=== PATIENT | male | born 1965 | race Caucasian/White ===

== ENCOUNTER 2016-07-16 15:17 | Inpatient (IN) | payer MEDICARE, MEDICAID ==
[~2016-07-16] VITALS: Ht 180.3 cm; Wt 55.1 kg
[2016-07-16] VITALS (13 sets, daily range): BP systolic 113–158; BP diastolic 65–89; O2SAT 97–98
[2016-07-16] MEDS ORDERED: NOREPINEPHRINE 4 MG/4 ML AMP As Ordered ONE (15:38)
[2016-07-16] MEDS ORDERED: NOREPINEPHRINE BITARTRATE 8 MG in D5W 500 ML IV SCH (15:41)
[2016-07-16] MEDS ORDERED: AMIODARONE 150MG/3ML INJ (J0282) ONE (15:42)
[2016-07-16] MEDS ORDERED: SODIUM BICARBONATE 8.4% INJ 50 ML SYRINGE ONE (15:42)
[2016-07-16] MEDS ORDERED: ATROPINE SULF 1MG/10ML SYRINGE (J0461) ONE (15:42)
[2016-07-16] MEDS ORDERED: EPINEPHrine 1MG/10ML SYRINGE 1.5IN ONE (15:42)
[2016-07-16] MEDS ORDERED: DOPamine 400 MG/500 ML BAG IN D5W (800MCG/ML) (J1265) ONE (15:42)
[2016-07-16 15:49] LABS: ABG HCO3 11.1 MEQ/L (22.0-26.0); ABG PARTIAL PRESSURE CO2 70.9 mmHg (35.0-45.0); ABG PARTIAL PRESSURE O2 256.1 mmHg (75.0-100.0); ABG STANDARD HCO3 7.8 MEQ/L (22.0-26.0); ABG TOTAL CO2 13.2 MEQ/L (22.0-29.0); ABG pH (ARTERIAL) 6.811 UNITS (7.350-7.450)
[2016-07-16] MEDS ORDERED: SODIUM BICARBONATE 8.4% INJ 50MEQ 50 ML VIAL As Ordered ONE (16:02)
[2016-07-16] MEDS ORDERED: IMIPENEM/CILASTATIN 500 MG in D5W MINI-BAG PLUS 100 ML IV ONE (16:15)
[2016-07-16] MEDS ORDERED: VANCOMYCIN HCL 1,000 MG, VIAL MATE ADAPTER 1 EACH in D5W 250 ML IV ONE (16:15)
[2016-07-16 16:25] LABS: ALBUMIN 1.9 GM/DL (3.2-5.2); ALKALINE PHOSPHATASE 32 U/L (45-117); ALT/SGPT 96 U/L (12-78); AMYLASE 54 U/L (25-115); AST/SGOT 254 U/L (15-37); BILIRUBIN,DIRECT 0.4 MG/DL (0.0-0.2); BILIRUBIN,TOTAL 0.7 MG/DL (0.2-1.0); BLOOD UREA NITROGEN 44 MG/DL (7-18); CALCIUM LEVEL 6.8 MG/DL (8.5-10.1); CARBON DIOXIDE LEVEL 13 MEQ/L (21-32); CHLORIDE LEVEL 97 MEQ/L (98-107); CREATININE FOR GFR 1.71 MG/DL (0.70-1.30); GLUCOSE, FASTING 90 MG/DL (70-105); POTASSIUM SERUM 4.7 MEQ/L (3.5-5.1); SODIUM LEVEL 138 MEQ/L (136-145); TOTAL PROTEIN 5.2 GM/DL (6.4-8.2)
[2016-07-16 16:28] LABS: ALBUMIN/GLOBULIN RATIO 0.58 (1.00-1.93); ANION GAP 28 MEQ/L (8-16)
[2016-07-16 16:43] LABS: MAGNESIUM LEVEL 3.1 MG/DL (1.8-2.4)
[2016-07-16] MEDS ORDERED: PANTOPRAZOLE 40MG INJ (PROTONIX) (C9113) IV ONE (17:00)
[2016-07-16] MEDS ORDERED: PANTOPRAZOLE SODIUM 40 MG in D5W MINI-BAG PLUS 50 ML IV SCH (17:00)
[2016-07-16 17:21] LABS: ABG BASE EXCESS -19.7 (-2.0-2.0); ABG HCO3 11.9 MEQ/L (22.0-26.0); ABG PARTIAL PRESSURE CO2 51.4 mmHg (35.0-45.0); ABG PARTIAL PRESSURE O2 84.6 mmHg (75.0-100.0); ABG STANDARD HCO3 10.2 MEQ/L (22.0-26.0); ABG TOTAL CO2 13.5 MEQ/L (22.0-29.0); ABG pH (ARTERIAL) 6.983 UNITS (7.350-7.450)
[2016-07-16 17:30] LABS: METHADONE URINE NEGATIVE (NEGATIVE)
[2016-07-16 17:48] LABS: MEAN CORPUSCULAR HEMOGLOBIN 33.4 pg (27.0-33.0); MEAN CORPUSCULAR HGB CONC 32.9 g/dl (32.0-36.5); MEAN CORPUSCULAR VOLUME 101.5 fl (80.0-96.0); PLATELET COUNT, AUTOMATED 176 k/mm3 (150-450); RED CELL DISTRIBUTION WIDTH 13.4 % (11.5-14.5); WHITE BLOOD COUNT 13.1 K/mm3 (4.0-10.0)
[2016-07-16 17:55] LABS: INR 1.77
[2016-07-16] MEDS ORDERED: LISI20TA PO (18:09)
[2016-07-16] MEDS ORDERED: LEVO50TA5 PO (18:09)
[2016-07-16] MEDS ORDERED: AMLO10TA2 PO (18:09)
[2016-07-16] MEDS ORDERED: COMBAER6 INH (18:09)
[2016-07-16 18:10] LABS: ABG BASE EXCESS -19.7 (-2.0-2.0); ABG HCO3 12.9 MEQ/L (22.0-26.0); ABG PARTIAL PRESSURE CO2 59.3 mmHg (35.0-45.0); ABG PARTIAL PRESSURE O2 86.9 mmHg (75.0-100.0); ABG STANDARD HCO3 10.4 MEQ/L (22.0-26.0); ABG TOTAL CO2 14.8 MEQ/L (22.0-29.0)
[2016-07-16 18:11] LABS: ABG pH (ARTERIAL) 6.957 UNITS (7.350-7.450)
[2016-07-16 18:28] LABS: ANISOCYTOSIS 1+; BANDS 52 % (< 11); GIANT PLATELETS 1+; OVALOCYTES 1+; PLASMA CELL 3 % (0-0); POIKILOCYTOSIS 1+; POLYCHROMASIA 1+
[2016-07-16 18:29] LABS: TOXIC GRANULATION 2+
[2016-07-16 18:30] LABS: DOHLE BODIES 1+
[2016-07-16 18:31] LABS: CONTROL LINE INT CTR LINE PRESENT
[2016-07-16] MEDS: NOREPINEPHRINE BITARTRATE 8 MG in D5W 500 ML IV SCH (18:40)
[2016-07-16] MEDS ORDERED: DOPamine HCL 400 MG in APPROPRIATE DILUENT 1 EA IV SCH (18:45)
[2016-07-16] MEDS ORDERED: MIDAZOLAM INJ 2 MG/2 ML VIAL (J2250) IV PRN (18:45)
[2016-07-16 18:49] LABS: VENOUS BASE EXCESS -17.3 (-2.0-2.0); VENOUS O2 SATURATION 90.4 % (60.0-80.0); VENOUS PARTIAL PRESSURE CO2 67.8 mmHg (38.0-50.0); VENOUS PARTIAL PRESSURE O2 86.6 mmHg (30.0-50.0); VENOUS STANDARD HCO3 11.7 MEQ/L; VENOUS TOTAL CO2 17.4 MEQ/L (24.0-28.0)
[2016-07-16] MEDS ORDERED: SODIUM BICARBONATE 150 MEQ in D5W 1,000 ML IV SCH (19:15)
[2016-07-16] MEDS ORDERED: GLUCOSE 4 GM CHEW TABLET PO PRN (19:45)
[2016-07-16] MEDS ORDERED: GLUCAGON FOR INJ 1 MG VIAL (J1610) SC PRN (19:45)
[2016-07-16] MEDS ORDERED: DEXTROSE 50% 50 ML SYRINGE IV PRN (19:45)
[2016-07-16] MEDS ORDERED: IPRATROPIUM 0.5MG/ALBUTEROL 2.5MG INH SOL UD 3ML (DUONEB)(J7620) NEB SCH (20:00)
--- NOTE | 2016-07-16 20:40 | ECGEPIP ---
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
[2016-07-16] MEDS ORDERED: CHLORHEXIDINE GLUCONATE 0.12 % 15ML UDC (PERIDEX ORAL RINSE) MT SCH (21:00)
[2016-07-16] MEDS: PANTOPRAZOLE SODIUM 40 MG in D5W MINI-BAG PLUS 50 ML IV SCH ×2 (21:04→23:12)
--- NOTE | 2016-07-16 21:10 | PHACANCOPD ---
PHARMACY VANCOMYCIN DOSING Pt Demographics Demographics Patient Age:50 , Weight: , Gender: male Adjusted Body Weight Date: 07/16/16, Adjusted Body Weight: [51.5] Kg Events Past 24 Hours Events Past 24 Hours: NO: Change in CrCl, Dialysis, Diuretic Therapy, Elevation in WBC, Fever, Other, Pending Diagnostics, Pending Procedures Vancomycin Vancomycin Target Ranges: 15-20 mcg/ml Vancomycin Load Y/N: No Load Dose Date Time Vancomycin Load Dose: Date: Time: Vancomycin Dose Date: 07/16/16. Current Vancomycin Dose: [1000MG Q12H] Intermittent Dosing?: No Labs Labs Item Value Date Time White Blood Count 13.1 K/mm3 H 07/16/16 1727 Creatinine 1.71 MG/DL H 07/16/16 1539 Blood Urea Nitrogen 44 MG/DL H 07/16/16 1539 Micro Microbiology 07/16/16 Blood Culture, Received Pending 07/16/16 Blood Culture, Received Pending 07/16/16 Influenza Virus Type A Antigen - Final, Complete 07/16/16 Influenza Virus Type B Antigen - Final, Complete 07/16/16 Urine Culture, Received Pending Creatinine Clearance Date:07/16/16. Creatinine Clearance: [50]. Pending Labs trough scheduled for 03-20 @1500 Assessment and Plan Maintaining Current Dose?: Yes Reason for dose change: No Dose Change Pharmacist Note Pharmacist Note Date: 07/16/16. Pharmacist note:Dosed at 1000mg q12h with a trough ordered for 03 -20 @1500. Will continue to monitor and make adjustments as needed. ABIGAIL RICK [facility]ARM[facility] Jul 16, 2016 21:10
[2016-07-16 21:43] LABS: ABG BASE EXCESS -11.4 (-2.0-2.0); ABG HCO3 16.2 MEQ/L (22.0-26.0); ABG PARTIAL PRESSURE CO2 42.4 mmHg (35.0-45.0); ABG PARTIAL PRESSURE O2 141.8 mmHg (75.0-100.0); ABG STANDARD HCO3 15.7 MEQ/L (22.0-26.0); ABG TOTAL CO2 17.5 MEQ/L (22.0-29.0)
[2016-07-17] VITALS (24 sets, daily range): BP systolic 97–251; BP diastolic 38–138; O2SAT 99–100
[2016-07-17] MEDS ORDERED: IMIPENEM/CILASTATIN 500 MG in D5W MINI-BAG PLUS 100 ML IV SCH (01:00)
[2016-07-17] MEDS ORDERED: NOREPINEPHRINE 4 MG/4 ML AMP As Ordered ONE (01:04)
[2016-07-17] MEDS: HumaLOG INSULIN (NovoLOG) PER UNIT SC SCH ×2 (01:24→06:11)
--- NOTE | 2016-07-17 02:26 | ECGEPIP ---
Stationary ECG Study 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
[2016-07-17 03:46] LABS: ABG BASE EXCESS -15.2 (-2.0-2.0); ABG HCO3 12.7 MEQ/L (22.0-26.0); ABG PARTIAL PRESSURE CO2 36.7 mmHg (35.0-45.0); ABG PARTIAL PRESSURE O2 176.4 mmHg (75.0-100.0); ABG STANDARD HCO3 13.1 MEQ/L (22.0-26.0); ABG TOTAL CO2 13.8 MEQ/L (22.0-29.0)
[2016-07-17 03:50] LABS: ABG pH (ARTERIAL) 7.156 UNITS (7.350-7.450)
[2016-07-17] MEDS ORDERED: VANCOMYCIN HCL 1,000 MG, VIAL MATE ADAPTER 1 EACH in D5W 250 ML IV SCH (04:00)
[2016-07-17 04:25] LABS: MEAN CORPUSCULAR HEMOGLOBIN 33.2 pg (27.0-33.0); MEAN CORPUSCULAR HGB CONC 32.1 g/dl (32.0-36.5); MEAN CORPUSCULAR VOLUME 103.3 fl (80.0-96.0); PLATELET COUNT, AUTOMATED 206 k/mm3 (150-450); RED CELL DISTRIBUTION WIDTH 13.6 % (11.5-14.5); WHITE BLOOD COUNT 21.6 K/mm3 (4.0-10.0)
[2016-07-17 04:30] LABS: INR 2.36
[2016-07-17] MEDS: PANTOPRAZOLE SODIUM 40 MG in D5W MINI-BAG PLUS 50 ML IV SCH (04:34)
[2016-07-17 04:41] LABS: BANDS 15 % (< 11)
[2016-07-17] MEDS: NOREPINEPHRINE BITARTRATE 8 MG in D5W 500 ML IV SCH (04:42)
[2016-07-17 04:43] LABS: TOXIC GRANULATION 1+
[2016-07-17 04:44] LABS: DOHLE BODIES 1+
[2016-07-17 04:48] LABS: ALBUMIN 2.2 GM/DL (3.2-5.2); ALBUMIN/GLOBULIN RATIO 0.52 (1.00-1.93); CALCIUM LEVEL 7.6 MG/DL (8.5-10.1); CREATININE FOR GFR 2.35 MG/DL (0.70-1.30); GLOMERULAR FILTRATION RATE 31.3 (>56); PHOSPHORUS LEVEL 3.9 MG/DL (2.5-4.9); POTASSIUM SERUM 3.2 MEQ/L (3.5-5.1); TOTAL PROTEIN 6.4 GM/DL (6.4-8.2)
[2016-07-17] MEDS ORDERED: EPINEPHrine HCL INJ 1 MG in D5W 240 ML IV SCH (05:00)
[2016-07-17] MEDS ORDERED: DILUENT IV SCH ×2 (05:30)
[2016-07-17] MEDS ORDERED: SWI IV SCH ×2 (05:30)
[2016-07-17] MEDS ORDERED: KCL IV SCH ×2 (05:30)
--- NOTE | 2016-07-17 06:40 | CCN ---
DATE OF VISIT: 07/16/2016 CRITICAL CARE NOTE. HISTORY OF PRESENT ILLNESS: This patient is a 50-year-old male who presented to the emergency department post resuscitation. The patient called emergency medical services earlier in the day with complaints of feeling ill. Initially there was a report of seizures but EMS indicates these were not occurring. According to the record the patient refused transfer. Others reported that there were episodes of falling. Despite repeated recommendations to allow transfer to the hospital, the patient refused. Associates called EMS back 30 minutes later who on their arrival found the patient unresponsive, cardiac rhythm was asystole. Cardiopulmonary resuscitation (CPR) was initiated, resuscitation ensued, endotracheal tube placement was performed. On arrival to the emergency department the patient was intubated and found to be in ventricular fibrillation. Resuscitation continued for a prolonged period of time and with aggressive efforts there was return of spontaneous circulation. There are no family members available at this time to ask about past medical history or review of systems. On reviewing the electronic health record there is indicated a history of hypertension, hypothyroidism, tobacco abuse, alcohol abuse. cellulitis. cirrhosis and pectus excavatum. PHYSICAL EXAMINATION VITAL SIGNS : Temperature 95, pulse rate 97, respirations 18/18 delivered by the mechanical ventilator, no spontaneous breathing is noted, blood pressure 102/72 on both Levophed and dopamine. HEENT/NECK: The patient's head is atraumatic. There is a number 7.5 endotracheal tube at 23 cm. Pupils are fixed and dilated. Neck is supple. No meningismus. There are no doll's eyes movements. There is an orogastric tube in place with bright red blood draining. Jugular veins are at the sternal angle. HEART: Heart sounds are regular. LUNGS: Somewhat distant breath sounds, coarse throughout with scattered rhonchi. There is an old scar in the subxiphoid area of the chest now healed. ABDOMEN: The skin of the abdomen shows a rash over the flank. Abdomen is sunken, no appreciable bowel sounds. No palpable mass. EXTREMITIES: Extremities show mottling, kneecaps are fully mottled. There are some excoriations of the feet and lower limbs. Peripheral pulses are barely palpable. The patient is flaccid. Kellee coma scale: 3. DIAGNOSTIC STUDIES: Studies were reviewed. The white cell count is 13.1, hemoglobin 14.5, hematocrit 44, platelet count is 176,000. Differential white cell count shows 9 neutrophils, 52 band cells, metamyelocytes, myelocytes, atypical lymphocytes and toxic granulations, as well as Dohle bodies. The sodium is 138, potassium 4.7, chloride 97, CO2 13, BUN 44, creatinine 1.7, glucose 90, lactate level 12.2, calcium 6.8, magnesium 3, AST 254, ALT 96, troponin 0.04, albumin 1.9, amylase 54. Arterial blood gases on admission showed a pH of 6.81, pCO2 70, pO2 256, most recent arterial blood gas pH 6.95, pCO2 59, pO2 86, PT 20, PTT 62. Urine toxicology screen was essentially negative. Urinalysis was 2+, protein, 3+ blood. White cells were positive, there was 2+ bacteria, some sediment. IMAGING STUDIES: Imaging studies were reviewed. Chest x-ray shows marked hyperinflation, the endotracheal tube is in good position. I have reviewed the CT of the chest which shows bibasilar infiltrates and bronchiectasis. Abdomen and pelvic CTs have been performed, reports are pending. Head CT was performed, reports are pending. ASSESSMENT: 1. The primary problem requiring critical attention is shock. There are components of cardiogenic shock related to various ventricular arrhythmias most recently ventricular fibrillation from which the patient has been effectively resuscitated. There are components of septic shock based on the marked elevation and band cells toxic granulations, and elevated serum lactate and broad-spectrum antibiotics have been initiated. The patient has been given intravenous (IV) fluids. Will repeat lactate level and continue with double pressors as already initiated in the emergency room (ER). Additional problems include: 2. Profound metabolic acidosis. The patient has been started on IV bicarb drip. We will continue with this. Change mechanical ventilatory support to attempt increase minute ventilation and recheck arterial blood gases. 3. Hypoxic encephalopathy. This is likely related to the prolonged period of asystole and due to the delay in return of spontaneous circulation, the presence of sepsis and active gastrointestinal (GI) bleeding, the patient is felt to be a candidate for hypothermic therapy. 4. GI bleeding. An orogastric (OG) tube has been placed. It will monitor output and follow hemoglobin/hematocrit. The patient will be started on a Protonix drip. 5. Coagulopathy. Suspect this is disseminated intravascular clotting DIC. Will order additional coagulation factors, currently hemoglobin is acceptable. 6. Acute kidney injury. The patient is nonoliguric at this point. Continue monitoring urine output and recheck renal indices. 7. Deep venous thrombosis (DVT) prophylaxis will be arranged with thromboembolic deterrent stockings (PIPO) sequential. Glycemic control will be monitored with fingerstick blood sugars and coverage at this point. The patient's condition is very severely critical. His prognosis for a meaningful recovery is poor. I will ask social services coordinator to assist in identifying family. 2 hours and 14 minutes was spent in the provision of bedside, critical care and coordination. TOD
[2016-07-17] MEDS ORDERED: CALCIUM CHLORIDE 10% 1 GM/10 ML SYR ONE (06:59)
--- NOTE | 2016-07-17 07:00 | REP ---
Chest x-ray: Single view. History: Arrest No comparison views. Findings: An endotracheal tube is seen in good position at the level of the transverse aorta. EKG monitoring electrodes are seen. The lungs are symmetrically aerated. There is diffuse osteopenia. No acute rib or other fracture is appreciated. There are old healed rib fractures visible on the right. Mediastinum is not widened. Heart is mildly enlarged. Interstitial markings are increased in both lung bases. No evidence of pneumothorax or hydrothorax. Impression: Endotracheal tube in good position. Increased interstitial markings in both lung bases. Mild cardiomegaly. Old appearing right lower rib fractures. Signed by Rao Serrano MD 07/17/2016 11:39 A
--- NOTE | 2016-07-17 07:08 | REP ---
CT study of the brain without contrast: History: Altered mental status. No comparison study. Findings: Bone window settings demonstrate an intact bony calvarium. No skull fracture or bony destructive lesion is seen. The visualized paranasal sinuses are clear. No intraorbital abnormality is seen. On soft tissue window settings, there is mild diffuse cerebral atrophy. There are old areas of encephalomalacia in the anterior and inferior frontal lobes bilaterally suggesting the results of previous trauma. There is no evidence of intracranial hemorrhage. No extra-axial fluid collection is seen. No mass, infarction, or midline shift is seen. Impression: Bilateral anterior and inferior frontal lobe encephalomalacia consistent with prior head trauma. No acute intracranial abnormality. Mild diffuse atrophy. Signed by Rao Serrano MD 07/17/2016 11:40 A
--- NOTE | 2016-07-17 07:13 | REP ---
CT STUDY OF THE CHEST WITHOUT CONTRAST: HISTORY: Cardiac arrest. Altered mental status. CT FINDINGS: Endotracheal and esophageal gastric tubes are noted both in good position. There is no evidence of pneumothorax. There is however a small pneumomediastinum noted in the anterior retrosternal soft tissues. There are patchy areas of infiltrate in the lower lobes bilaterally. There is some patchy consolidation in the right middle lobe as well. Some bronchiectasis is seen in these areas. No definite pulmonary mass lesion is seen. No pleural effusion or pericardial effusion is seen. There is old deformity of the anterior chest wall of multiple anterior costal cartilage and anterior rib fractures. On the right some of these are deviated or displaced posteriorly. There is no evidence of mediastinal hematoma. No adrenal lesion is seen. Visualized upper abdominal structures are unremarkable. No definite acute rib fracture is seen. There is a nondisplaced fracture in the body of the sternum. The manubrium and sternum are fused in developmentally. IMPRESSION: Bilateral lower lobe and right middle lobe infiltrates with areas of bronchiectasis. Old anterior rib end costal cartilage calcifications with some anterior chest deformity. No acute rib fracture is appreciated. There is a small pneumomediastinum. Nondisplaced sternal fracture. Signed by Rao Serrano MD 07/17/2016 11:40 A
--- NOTE | 2016-07-17 07:14 | REP ---
CT STUDY OF THE ABDOMEN AND PELVIS WITHOUT IV OR ORAL CONTRAST: HISTORY: Altered mental status. Status post cardiac arrest. No comparison imaging. FINDINGS: A esophagogastric tube is seen in the body of the stomach. There is a small quantity of fluid anterior to the liver. No evidence of liver laceration is seen. No adrenal lesion is observed. There is some pericholecystic fluid. Pancreas shows peripancreatic edema. The kidneys are morphologically intact. A Talbert catheter is noted in the urinary bladder. There is no evidence of free intraperitoneal air. IMPRESSION: Minimal perihepatic fluid adjacent to the anterosuperior edge of the liver. Pericholecystic and diffuse peripancreatic edema; question pancreatitis or pancreatic injury. Talbert catheter and esophagogastric tubes noted. Signed by Rao Serrano MD 07/17/2016 11:40 A
--- NOTE | 2016-07-17 08:27 | CCN ---
DATE: 07/17/2016 TIME: 3:30 a.m. CRITICAL CARE NOTE: I was called back to the intensive care unit for reevaluation of the patient in full arrest. Pressors had been weaned over the last few hours when nursing noted that his heart rate abruptly became bradycardic on the monitor. Code was called when blood pressure dropped abruptly and when no pulses were appreciated. CPR was started. The hospitalists was in-house and responded promptly. CPR continued. The rhythm was felt to be pulseless electrical activity. Three courses of epinephrine were given intravenously. CPR was continued until pulse return. On my arrival, the patient's heart rate is 113, blood pressure 160/66. He is unresponsive. HEENT: Endotracheal tube and orogastric tubes remain in good position. Neck is supple. Heart: Sounds are distant. Breath sounds coarse, clear. Abdomen: Soft. Extremities: Cold. Pulses are appreciable with a Doppler. The Levophed has been restarted to a target mean arterial pressure of 65 and the electrocardiogram now shows a sinus rhythm, sinus mechanism and arterial blood gas has been sent. Will send cardiac enzymes. 45 minutes was spent in the provision of bedside critical care coordination.
--- NOTE | 2016-07-17 08:34 | CCN ---
DATE: 07/17/2016 TIME: 07:00 a.m. CRITICAL CARE NOTE I was called back to the patient's bedside in the intensive care unit. Telemetry monitoring showed rhythm too slow and pulses were lost . Despite aggressive resuscitation and intravenous (IV) epinephrine, no perfusing rhythm was able to be reestablished. The code was called to 07:00 a.m. and the patient pronounced . [place] [facility] [place] Family was contacted.
--- NOTE | 2016-07-17 08:38 | CCN ---
DATE: 07/17/2016 TIME: 5:15 a.m. CRITICAL CARE NOTE: I was called back to the bedside. The patient's telemetry monitoring showed heart rate to be falling. Pulses were lost. On this occasion, CPR was started and when rhythm was checked, ventricular fibrillation was appreciated. The patient was shocked with 200 and subsequently 360 for three shocks. Epinephrine was given as was IV calcium and continued CPR with lutheran of a sinus rhythm and pressure by Doppler. Review of lab studies obtained earlier at 4:04 this morning shows sodium of 134, potassium 3.2, chloride 93, CO2 16, BUN 51, creatinine 2.3, glucose 354, calcium 7.6, LDH 2880, troponin 5.2, albumin 2.2. The patient's significant other arrived with a friend both of whom appeared to be inebriated in that there was alcohol appreciable on their breath and they were unable to focus during conversation. I attempted to explain the severity and extent of his illness and told them that his prognosis for survival was very poor. They will attempt to contact the patient's sister. The primary problem requiring critical attention is cardiopulmonary arrest with malignant arrhythmias and repeated resuscitation efforts every 30-45 minutes. Will continue with maximal supportive care, pressors, IV bicarbonate and potassium replacement. Acute respiratory failure. Continue with mechanical ventilation. We are using pressure controls to maximally ventilate the patient while delivering lung protective pressures. Will repeat an arterial blood gas in light of the profound persistent metabolic acidosis. Sepsis with shock, possibly secondary to pneumonia. This may be a primary problem inciting the patient's cardiac deterioration. Broad-spectrum antibiotics have been administered and will be continued. The patient has received adequate fluid resuscitation. IV pressors are in place. Acute kidney injury. The patient is now oliguric with elevated creatinine, I suspect ATN. GI bleed. There is a small amount of red blood in the NG tube but not active bleeding at this time. Disseminated neurovascular coagulation. The patient's coagulation profile suggests in this condition that hemoglobin and hematocrit thankfully is stable. Hypoxic encephalopathy. Patient's Kellee coma scale remains 3. 58 minutes spent in the continued provision of bedside critical care and coordination of care. The patient's prognosis for meaningful survival is very, very poor.
--- NOTE | 2016-07-17 08:39 | CCN ---
DATE OF VISIT: 07/17/2016 CRITICAL CARE NOTE: Time: 0447 p.m. I was called back to the intensive care unit (ICU). The patient had been in sinus rhythm following the arrest at 3 o'clock this morning. Telemetry monitoring then showed a widening complexes and heart rate fell, pulses were unable to be obtained. Cardiopulmonary resuscitation (CPR) was initiated once again and a CODE was called. The patient received intravenous (IV) epinephrine with hindu of heart rate and blood pressure. Laboratory studies ordered after the 3 o'clock arrest showed a white count 21.6, hemoglobin 13.5, hematocrit 41.9, platelet count 206,000. Differential white cell count showed 63% neutrophils, 15 bands, 2 metamyelocytes, toxic granulations. Arterial blood gas showed pH 7.156, PCO2 36, PO2 176. Lactic acid level at 2142 was 9.5. Coagulation studies: PTT 51, PT 25. EKG shows sinus mechanism. Electrolytes ordered and impending at this time. Difficulty was encountered in obtaining the blood without hemolysis. Will change his pressor drip from Levophed to epinephrine given the recurrent cardiac arrhythmias despite maximal supportive care. Prognosis is very poor for survival. 47 minutes were spent in provision of bedside critical care and coordination.
--- NOTE | 2016-07-17 13:47 | DSES ---
DATE OF ADMISSION: 07/16/2016 DATE OF DISCHARGE/: 07/17/2016 DISCHARGE DIAGNOSES: Severe sepsis with shock. Pneumonia. Cardiac arrest with malignant arrhythmias (pulseless electrical activity ventricular fibrillation, ventricular tachycardia). Hypoxic/anoxic encephalopathy. Gastrointestinal (GI) bleeding. Disseminated intravascular coagulation. Acute kidney injury. Metabolic acidosis. HISTORY: The patient is a 50-year-old male who presented to the emergency department in cardiopulmonary arrest. History obtained through the emergency department physician indicates that EMS was summoned earlier for a nonspecific illness. When the patient was evaluated on the scene, he was advised to come to the hospital but vehemently refused. EMS was summoned back to the scene 30 minutes or thereabouts afterward to find the patient in asystole and fully unresponsive. CPR was initiated at that time. Aggressive resuscitation was performed and endotracheal tube placement was performed in the field. The patient was transported to the emergency department and found to be in pulseless electrical activity. Resuscitation continued there and with aggressive resuscitative efforts, pulse was restored and spontaneous circulation occurred after a prolonged period of time. On my arrival to the emergency department, patient's temperature was 95, pulse rate was 97, respirations 18/18 delivered, no spontaneous breaths, blood pressure was 102/72 on Levophed and dopamine both at full dose. PERTINENT PHYSICAL FINDINGS: The patient was atraumatic. There was an endotracheal tube in position. Pupils were fixed and dilated. Neck was free of meningismus. There were no doll's eyes motions. Orogastric tube was in place draining bright red blood. Heart sounds were regular, somewhat distant. Breath sounds diminished and coarse bilaterally. There was a subxiphoid old well-healed incision. Abdomen was sunken. Extremities cold and mottled. DIAGNOSTIC STUDIES: On addmision, the patient's white count was 13.1, hemoglobin 14,500, hematocrit 44, platelet count 176,000. At 4 a.m. on 07/17, the white count was 21.6, hemoglobin 13.5, hematocrit 41.9, platelet count 206,000. Electrolytes on admission were sodium 138, potassium 4.7, chloride 97, CO2 13. BUN was 44, creatinine 1.7, glucose 90, magnesium 3.1, AST 254, ALT 96, albumin 1.9. Initial serum lactate was 12.2, subsequent lactate 10.5 and 9.5. Electrolytes at 4:04 a.m. on 07/17 showed a sodium 134, potassium 3.2, chloride 93, CO2 16, BUN 51, creatinine 2.3, glucose 354, calcium is 7.6, AST 3867, ALT 881. LDH 2880. CPK was 4058, troponin 5.2, albumin 2.1. Arterial blood gases on admission to the hospital revealed a pH of 6.81, pC02 70, p02 on mechanical ventilatory support. Coagulation study on admission revealed a PT of 20, PTT of 62 fibrinogen of 531. Repeat coagulation studies at 4:04 a.m. showed PT of 25, PTT of 51, fibrinogen down to 348. A chest x-ray showed hyperinflation with endotracheal tube in good position. Orogastric tube in good position. CT scan of the chest showed bibasilar infiltrates and atelectasis. Reports of imaging studies remain pending at this time. There was also a CT scan of the head and abdomen and pelvis. Emergency department readings indicated no acute pathology on either. HOSPITAL COURSE: The patient was seen in the emergency arrangements were made for direct admission to the intensive care unit. After admission to the intensive care unit, pressors were weaned. The patient was able to come off dopamine, Levophed dose was decreased. At approximately 3:00 a.m. 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 A code was called and patient was resuscitated, received CPR and epinephrine with hindu of pulse. Similar cardiac rhythm and arrest occurred again at approximately 4:00 a.m., again at 5:00 a.m. and again at 6:45. On the early occasions, spontaneous circulation was able to be restored. On the last occasion, despite aggressive resuscitative efforts, IV epinephrine and cardiopulmonary resuscitation, he patient was unable to be resuscitated and was pronounced at 7:00 a.m. The patient's family had presented to the hospital and were informed of his critical illness and his very poor prognosis. [place] [facility] [place] [facility]
--- NOTE | 2016-07-18 21:54 | ECGEPIP ---
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
== END 2016-07-17 07:00 | disposition expired | DRG 871 ==
LOC: EDBD 15:17 → M ED 15:41 → M ED INP 18:40 → M ICU 20:13
PROVIDERS: ADMIT Internal Medicine Pulmonary Disease; ATTEND Internal Medicine Pulmonary Disease
DX: A41.9 Sepsis, unspecified organism (principal); R65.21 Severe sepsis with septic shock; D65 Disseminated intravascular coagulation [defibrination syndrome]; N17.0 Acute kidney failure with tubular necrosis; J96.00 Acute respiratory failure, unspecified whether with hypoxia or hypercapnia; J18.9 Pneumonia, unspecified organism; G93.1 Anoxic brain damage, not elsewhere classified; K92.2 Gastrointestinal hemorrhage, unspecified; R87.2 Abnormal level of other drugs, medicaments and biological substances in specimens from female genital organs; I46.8 Cardiac arrest due to other underlying condition; R57.0 Cardiogenic shock; I49.01 Ventricular fibrillation